=== PATIENT | female | born 1935 | race Caucasian/White ===

== ENCOUNTER → 2020-01-28 | Outpatient (REF) | payer MEDICARE, BC ==
[~2020-01-28] MED LIST: AMLO1TAB24 PO; ATEN100T PO; CALCCAP4 PO; FURO40TA2 PO; LISI40TA PO; MULTCAP PO; OCUVTAB4 PO; SIMV20TA22 PO
[2020-01-28 16:41] LABS: BASO % 0.4 % (0.0-1.0); EOS # 0.1 10^3/uL (0.0-0.5); EOS % 1.3 % (0.0-3.0); HEMATOCRIT 45.1 % (36.0-47.0); LYMPH # 1.4 10^3/uL (1.5-5.0); MEAN CORPUSCULAR HEMOGLOBIN 32.3 pg (27.0-33.0); MEAN CORPUSCULAR HGB CONC 33.3 g/dl (32.0-36.5); MONO # 0.8 10^3/uL (0.0-0.8); MONO % 8.9 % (0.0-5.0); NEUTROPHILS # 6.1 10^3/uL (1.5-8.5); NEUTROPHILS % 72.2 % (36.0-66.0); PLATELET COUNT, AUTOMATED 298 10^3/uL (150-450); RED BLOOD COUNT 4.65 10^6/uL (4.00-5.40); WHITE BLOOD COUNT 8.4 10^3/uL (4.0-10.0)
[2020-01-28 16:50] LABS: INR 0.97; PROTHROMBIN TIME 13.1 SECONDS (11.8-14.0)
[2020-01-28 17:04] LABS: ALBUMIN 3.8 GM/DL (3.2-5.2); ALT/SGPT 24 U/L (12-78); BILIRUBIN,TOTAL 0.6 MG/DL (0.2-1.0); BLOOD UREA NITROGEN 15 MG/DL (7-18); CALCIUM LEVEL 9.5 MG/DL (8.8-10.2); CARBON DIOXIDE LEVEL 28 MEQ/L (21-32); CHLORIDE LEVEL 107 MEQ/L (98-107); CREATININE FOR GFR 0.84 MG/DL (0.55-1.30); GLOMERULAR FILTRATION RATE > 60.0 (>32); GLUCOSE, FASTING 118 MG/DL (70-100); POTASSIUM SERUM 5.2 MEQ/L (3.5-5.1); SODIUM LEVEL 141 MEQ/L (136-145)
== END ==
LOC: M LAB REF 11:07
PROVIDERS: ATTEND Internal Medicine Pulmonary Disease
DX: Z87.891 Personal history of nicotine dependence (principal); Z79.899 Other long term (current) drug therapy

== ENCOUNTER 2020-02-12 09:24 | Day surgery (SDC) | payer MEDICARE, BC, OTHER ==
[~2020-02-12] VITALS: Ht 162.6 cm; Wt 75.0 kg
[~2020-02-12 09:24] MED LIST changes: +EPINEPHrine 1MG/10ML SYRINGE 1.5IN As Ordered ONE; +LIDOCAINE 1% SDV 30ML VIAL As Ordered ONE; +LIDOCAINE 4% TOPICAL SOLN 50 ML BTL As Ordered ONE; +LIDOCAINE VISCOUS 2% SOLN 15ML UDC As Ordered ONE; +LR 1,000 ML IV ONE; +THROMBIN SOLN 20,000 UNITS KIT As Ordered ONE; +fentaNYL 100 MCG/2 ML INJECTION (J3010) As Ordered ONE
[2020-02-12] MEDS ORDERED: LIDOCAINE 4% INJ 5ML AMP As Ordered ONE (09:39)
[2020-02-12] MEDS ORDERED: ALBUTEROL SULFATE 2.5 MG/0.5 ML INH NEB SOLN As Ordered ONE (09:40)
[2020-02-12] MEDS ORDERED: LIDOCAINE 2% 100MG/5ML SDV (FOR ANES.) As Ordered ONE (10:28)
[2020-02-12] MEDS ORDERED: ROCURONIUM BROMIDE 50 MG/5 ML VIAL As Ordered ONE (10:28)
[2020-02-12] MEDS ORDERED: propofoL 200 MG/20 ML VIAL As Ordered ONE (10:28)
[2020-02-12] MEDS ORDERED: CETACAINE SPRAY 5GM As Ordered ONE (10:54)
[2020-02-12] MEDS ORDERED: ONDANSETRON 4MG/2ML VIAL As Ordered ONE (11:08)
[2020-02-12] MEDS ORDERED: dexameTHASONE 4 MG/ML 1ML VIAL (J1100 PER 1MG) As Ordered ONE (11:08)
[2020-02-12] MEDS ORDERED: GLYCOPYRROLATE INJ 0.2 MG/ML 2 ML VIAL As Ordered ONE (11:33)
[2020-02-12] MEDS ORDERED: NEOSTIGMINE 10MG/10ML VIAL (J2710 PER 0.5MG) As Ordered ONE (11:34)
--- NOTE | 2020-02-12 12:05 | ROOR ---
Patient Name: Mere Hernandez Procedure Date: 02/12/2020 7:27 AM Date of : 1935 Admit Type: Outpatient Age: 84 Note Status: Finalized Attending MD: Che Conner MD Procedure: Bronchoscopy Indications: Left upper lobe nodule Providers: Che Conner MD (Doctor), Jesus Puente DO, LEO (1st Assisting Doctor) Referring MD: 1. No Referring Physician 1. No Referring Physician, Admin. (Referring MD) Requesting Physician: Medicines: General Anesthesia, Cetacaine topical, Lidocaine 4% via nebulizer with Albuterol 2.5 mg Complications: No immediate complications. Estimated blood loss: Minimal Procedure: Pre-Anesthesia Assessment: - Prior to the procedure, a History and Physical was performed, and patient medications and allergies were reviewed. The patient's tolerance of previous anesthesia was also reviewed. The risks and benefits of the procedure and the sedation options and risks were discussed with the patient. All questions were answered, and informed consent was obtained. Prior Anticoagulants: The patient has taken no previous anticoagulant or antiplatelet agents. ASA Grade Assessment: II - A patient with mild systemic disease. After reviewing the risks and benefits, the patient was deemed in satisfactory condition to undergo the procedure. - [place] Protocol: - Pre-procedure Verification: Prior to the procedure, the patient's identity was verified by full name, date of and medical record number. The patient's identity was verified on all pertinent medical records, including History and Physical, nursing assessment, pre-anesthesia assessment and other test results. Also prior to the procedure, a History and Physical was performed, and patient medications, allergies and sensitivities were reviewed. The patient's tolerance of previous anesthesia was reviewed. The risks and benefits of the procedure and the sedation options and risks were discussed with the patient. All questions were answered and informed consent was obtained. - Time-Out: Prior to the start of the procedure, the patient's identification, proposed procedure, accurate signed consent, correctly labeled images and records, and need for prophylactic antibiotics were verified by the physician, the nurse, the advertising intern and the mechanic sound technician in the pre-procedure area in the endoscopy suite. The Bronchoscope was introduced through the mouth, via the endotracheal tube (the patient was intubated for the procedure) and advanced to the tracheobronchial tree of both lungs. The procedure was accomplished without difficulty. The patient tolerated the procedure well. Findings: The endotracheal tube is in good position. The visualized portion of the trachea is of normal caliber. The kip is sharp. The tracheobronchial tree was examined to at least the first subsegmental level. Bronchial mucosa showed some pitting and nodularity. Bronchial anatomy are normal; there are no endobronchial lesions, and no secretions. [employer] Robotic Electromagnetic navigation bronchoscopy was performed. The CT scan was used for planning purposes and a virtual bronchoscopic image was generated using the planning software prior to procedure. The target in the apical-posterior segment of the left upper lobe was marked and a pathway was created. After a complete airway exam, the robotic bronchoscopy was performed with electromagnetic navigation to locate the target lesion(s). Positioning centrally (in relation to the lesion) was confirmed using the Olympus radial probe US catheter and off-center (in relation to the lesion) was confirmed using the Olympus radial probe US catheter. Fluoroscopy guided transbronchial brushings of a nodule were obtained in the apical-posterior segment of the left upper lobe with a cytology brush and sent for routine cytology. Transbronchial brushing technique was selected because the sampling site was not visible endoscopically. Transbronchial biopsies of a nodule were performed in the apical-posterior segment of the left upper lobe using forceps and sent for histopathology examination. The procedure was guided by fluoroscopy. Transbronchial biopsy technique was selected because the sampling site was not visible endoscopically. Fiducial marker placement was performed. Once the target lesion was identified, two markers were deployed around the lesion in the apical-posterior segment of the left upper lobe. Impression: - Left upper lobe nodule - The airway examination was normal. - Electromagnetic navigation bronchoscopy was performed. - Transbronchial brushings were obtained. - Transbronchial lung biopsies were performed. - Fiducial markers were deployed. Recommendation: - The patient will be observed post-procedure, until all discharge criteria are met. Attending Participation: I personally performed the entire procedure. Che Conner MD 02/12/2020 12:04:35 PM Jesus Puente DO, [facility] Number of Addenda: 0 Note Initiated On: 02/12/2020 7:27 AM
[2020-02-12] MEDS ORDERED: ONDANSETRON 4MG/2ML VIAL IV PRN (12:30)
[2020-02-12] MEDS ORDERED: LR 1,000 ML IV SCH (12:30)
[2020-02-12] MEDS ORDERED: NORCO, ANEXSIA 5/325MG TABLET (HYDROcodone/ACETAMINOPHEN) PO PRN (12:30)
[2020-02-12] MEDS ORDERED: ALBUTEROL SULFATE 2.5 MG/0.5 ML INH NEB SOLN INH ONE (13:30)
[2020-02-12] MEDS ORDERED: LIDOCAINE 4% INJ 5ML AMP INH ONE (13:30)
[2020-02-12 14:30] VITALS: BP 157/72
--- NOTE | 2020-02-22 18:57 | ECGEPIP ---
[facility] Test Date: 2020-02-12 Pat Name: JOSHUA BURNETT Department: Room: - Gender: Female Assistant Athletic Trainer: DELBERT : 1935 Requested By: OSKAR NAIK Order Number: [id number] Reading MD: Dmitri Wetzel Measurements Intervals [place] Rate: 87 P: [place]: 0 QRS: -56 QRSD: 145 T: 72 QT: 411 QTc: 495 Interpretive Statements MULTIFOCAL ATRIAL RHYTHM L AXIS DEVIATION LBBB SEE SCANNED DOWNTIME REPORT
--- NOTE | 2020-03-03 11:34 | REP ---
FLUORO-GUIDED STUDY CLINICAL: Ultrasound bronchoscopy using portable fluoroscopic technique. FINDINGS: Single image demonstrates bronchoscope extending into the left upper lobe bronchus with two adjacent surgical clips identified. Total fluoroscopic time 2 minutes 4 seconds. IMPRESSION: Status post ultrasound bronchoscopy. MTDD
--- NOTE | 2020-03-03 11:34 | REP ---
PORTABLE SEMI-UPRIGHT CHEST X-RAY CLINICAL: Status post bronchoscopy. COMPARISON: None. FINDINGS: Mediastinum and cardiac silhouette are normal. There is an area of opacity in the left upper lobe with two small surgical clips. No further consolidation, effusion, or pneumothorax. Skeletal structures intact. IMPRESSION: Left upper lobe opacity with two adjacent surgical clips. No pneumothorax. MTDD
== END 2020-02-12 15:43 | disposition home or self-care (01) ==
LOC: M SDC 09:24
PROVIDERS: ATTEND Internal Medicine Pulmonary Disease
DX: C34.12 Malignant neoplasm of upper lobe, left bronchus or lung (principal); I10 Essential (primary) hypertension; Z86.718 Personal history of other venous thrombosis and embolism; Z79.899 Other long term (current) drug therapy
CPT/HCPCS: 31623; 31626; 31627; 31628; 71045; 76000; 88104; 88305; 88341; 88342; 93005; A4648; J1100; J2405; J2710; J3010; S2900